=== PATIENT | female | born 1960 | race Hispanic/Latino ===

== ENCOUNTER 2018-09-04 04:45 | Emergency (ER) | payer OTHER ==
[2018-09-04] MEDS ORDERED: Dicyclomine 20 MG TAB ONE (05:24)
[2018-09-04] MEDS ORDERED: Ondansetron PF 4 MG/2 ML Vial ONE ×2 (05:24→06:51)
[2018-09-04 05:30] LABS: #Basophils 0.1 thou/uL (0.0-0.2); #Eosinphils 0.2 thou/uL (0.0-0.7); #Lymphocytes 1.4 thou/uL (1.20-3.40); #Monocytes 0.5 thou/uL (0.11-0.59); #Neutrophils 5.8 thou/uL (1.40-6.50); %Basophils 0.6 % (0.0-1.0); %Eosinophils 2.9 % (0.0-10.0); %Lymphocytes 17.4 % (21.0-51.0); %Monocytes 6.6 % (0.0-10.0); %Neutrophils 72.5 % (42.0-75.0); Hemoglobin 14.8 g/dL (12.0-16.0); Mean Corpuscular HGB CONC 33.2 g/dL (32.0-36.0); Mean Corpuscular Hemoglobin 29.8 pg (27.0-31.0); Mean Corpuscular Volume 89.9 fL (78.0-98.0); Mean Platelet Volume 8.9 fL (7.4-10.4); Platelet Count 207 thou/uL (130-400); RBC Distribution Width 13.1 % (11.5-14.5); Red Blood Cell (RBC) Count 4.97 mill/uL (4.20-5.40); White Blood Cell (WBC) Count 7.9 thou/uL (4.8-10.8)
[2018-09-04 05:57] LABS: ALT (SGPT) 33 U/L (8-55); AST (SGOT) 41 U/L (5-34); Alkaline Phosphatase 152 U/L (40-150); Anion Gap 12 mmol/L (10-20); BUN (Urea Nitrogen) 9 mg/dL (9.8-20.1); Bilirubin, Total 0.8 mg/dL (0.2-1.2); CK (CPK) 162 U/L (29-168); Calc. Creatinine Clearance 0 mL/min (70-130); Calcium 9.4 mg/dL (7.8-10.44); Carbon Dioxide 26 mmol/L (22-29); Chloride 107 mmol/L (98-107); Estimated GFR-MDRD 84; Globulin 3.4 g/dL (2.4-3.5); Glucose 154 mg/dL (70-105); Lipase 39 U/L (8-78); Potassium 3.3 mmol/L (3.5-5.1); Protein, Total 7.4 g/dL (6.0-8.3); Sodium 142 mmol/L (136-145)
[2018-09-04] MEDS ORDERED: Lidocaine Viscous Sol 2% 15 ml UD Cup ONE (05:57)
[2018-09-04] MEDS ORDERED: Pantoprazole 40 MG VIAL ONE (05:57)
[2018-09-04] MEDS ORDERED: Mag-Al 1200 mg/1200 mg/30 ML UDCUP ONE (05:57)
[2018-09-04 06:51] LABS: Bilirubin Negative (Negative); Blood, Urine Negative (Negative); Clarity CLEAR (Clear); Glucose, Urine (Dipstick) Negative (Negative); Leukocyte Negative (Negative); Nitrite Negative (Negative); Protein, Urine (Dipstick) Negative (Neg-Trace); Specific Gravity, Urine 1.015 (1.002-1.036); Urobilinogen 0.2 mg/dL (0.2-1.0); pH, Urine 6.5 (5.0-9.0)
[2018-09-04 07:37] LABS: Troponin I Less than 0.010 ng/mL (< 0.028)
--- NOTE | 2018-09-04 07:44 | RAD ---
PORTABLE UPRIGHT FRONTAL CHEST RADIOGRAPH: DATE: 09/04/2018. COMPARISON: None. HISTORY: Chest pain and abdominal pain. FINDINGS/IMPRESSION: Lungs are clear. Heart and mediastinal contours are unremarkable. No acute findings. POS: [facility]
--- NOTE | 2018-09-04 07:46 | CT ---
FINAL REPORT CT ABDOMEN AND PELVIS: DATE: 09/04/2018. COMPARISON: None. HISTORY: Abdominal pain. FINDINGS: I agree with the preliminary V-RAD report dictated by Dr. Angel Manzo. The imaged lung bases demons trate no acute findings. Cholecystectomy clips are present. No free intraperitoneal air or fluid. 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 Liver, spleen, and pancreas demonstrate no acute findings. 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 Adrenal glands and kidneys demonstrate no acute findings. Mild distention of the urinary bladder noted. Limited assessment of the bowel without oral contrast demonstrates no acute findings. Retroaortic left renal vein present. No abdominal or pelvic adenopathy. No acute osseous abnormality. IMPRESSION: No acute findings. POS: [facility]
[2018-09-04] MEDS ORDERED: Iopamidol 370 76% 100 ML VIAL ONE (11:35)
== END 2018-09-04 07:56 | disposition home or self-care (01) ==
LOC: ERS 04:45
DX: R10.13 Epigastric pain (principal); R11.2 Nausea with vomiting, unspecified; R19.7 Diarrhea, unspecified; I10 Essential (primary) hypertension; Z79.899 Other long term (current) drug therapy
CPT/HCPCS: 36415; 71045; 74177; 80053; 81003; 82550; 83690; 84484; 85025; 93005; 96361; 96374; 96375; C9113; J2405